=== PATIENT | female | born 1960 | race Caucasian/White ===

== ENCOUNTER 2017-02-07 18:21 | Emergency (ER) | payer OTHER ==
[~2017-02-07 18:21] MED LIST: AUGMENTIN PO; FELDENE20 MG PO; HCTZ PO; HYDROXYZINE PO; KEFLEX500 MG PO; MOBIC15 MG PO; NAPROSYN500 MG PO; NAPROXEN PO; NEXIUM20 MG PO; NO MEDICATIONS; NORVASC PO; SKELAXIN PO; TRIAMCINOLONE CREAM; ZYRTEC-D T1 TAB.SR . PO
== END 2017-02-07 19:34 | disposition home or self-care (01) ==
LOC: SED 18:21
DX: S83.91XA Sprain of unspecified site of right knee, initial encounter (principal); K21.9 Gastro-esophageal reflux disease without esophagitis; I10 Essential (primary) hypertension; X58.XXXA Exposure to other specified factors, initial encounter; Z88.6 Allergy status to analgesic agent
CPT/HCPCS: 29530; 99283

== ENCOUNTER 2017-04-30 19:50 | Emergency (ER) | payer OTHER ==
[~2017-04-30] VITALS: Ht 160 cm; Wt 99.5 kg
== END 2017-04-30 20:25 | disposition home or self-care (01) ==
LOC: SED 19:50
DX: L03.311 Cellulitis of abdominal wall (principal); I10 Essential (primary) hypertension; K21.9 Gastro-esophageal reflux disease without esophagitis; Z88.6 Allergy status to analgesic agent
CPT/HCPCS: 99282